=== PATIENT | female | born 1985 | race Caucasian/White ===

== ENCOUNTER 2018-08-19 17:41 | Observation (INO) | payer OTHER ==
[~2018-08-19] VITALS: Ht 165.1 cm; Wt 74.4 kg
[2018-08-19] MEDS ORDERED: RINGERS SOLUTION,LACTATED 1,000 ML IV ONE (18:08)
[2018-08-19] MEDS ORDERED: CefTRIAXone 1 GM/DEXTROSE 50 ML IV ONE (18:15)
[2018-08-19] MEDS ORDERED: NIFEdipine 10 MG CAPSULE PO ONE ×2 (18:15→22:15)
[2018-08-19] MEDS: RINGERS SOLUTION,LACTATED 1,000 ML IV SCH ×2 (18:45→21:43)
[2018-08-19] MEDS: BETAMETHASONE SOLUSPAN 6 MG/ML 5 ML VIAL IM SCH (23:04)
[2018-08-20] MEDS: RINGERS SOLUTION,LACTATED 1,000 ML IV SCH (05:25)
[2018-08-20] MEDS ORDERED: NIFEdipine 10 MG CAPSULE PO ONE (11:30)
[2018-08-20] MEDS: BETAMETHASONE SOLUSPAN 6 MG/ML 5 ML VIAL IM SCH (11:34)
[2018-08-20] MEDS ORDERED: CefTRIAXone 1 GM/DEXTROSE 50 ML IV ONE (11:45)
== END 2018-08-20 12:40 | disposition home or self-care (01) ==
LOC: 4S 17:41
PROVIDERS: ADMIT Obstetrics & Gynecology; ATTEND Obstetrics & Gynecology
DX: O23.43 Unspecified infection of urinary tract in pregnancy, third trimester (principal); O62.9 Abnormality of forces of labor, unspecified; Z3A.34 34 weeks gestation of pregnancy
CPT/HCPCS: 96365; 96366; 96372 ×2; G0378 ×2; J0696 ×2; J0702 ×2; J7120 ×2

== ENCOUNTER 2018-09-19 14:10 | Inpatient (IN) | payer OTHER ==
[~2018-09-19] VITALS: Ht 165.1 cm; Wt 76.2 kg
[2018-09-19] MEDS ORDERED: OXYTOCIN 30 UNITS/LACT RINGERS 500 ML IV ONE ×2 (14:36→14:41)
[2018-09-19] MEDS ORDERED: RINGERS SOLUTION,LACTATED 1,000 ML IV PRN (14:36)
[2018-09-19] MEDS ORDERED: RINGERS SOLUTION,LACTATED 1,000 ML IV SCH (14:36)
[2018-09-19 14:39] VITALS: BP 133/82
[2018-09-19] MEDS ORDERED: FentaNYL CITRATE-PF 100 MCG/2 ML VIAL ONE (14:41)
[2018-09-19] MEDS ORDERED: METOCLOPRAMIDE HCL 5 MG/ML 2 ML VIAL IVP PRN (14:45)
[2018-09-19] MEDS ORDERED: CITRIC ACID/SODIUM CITRATE 30 ML SOLUTION UDCUP PO PRN (14:45)
[2018-09-19] MEDS ORDERED: LIDOCAINE/PF 1% 30 ML VIAL INJ PRN (14:45)
[2018-09-19 15:04] LABS: BASOPHILS % (AUTO) 0.4 % (0.0-2.0); EOSINOPHILS % (AUTO) 0.2 % (1.0-6.0); HEMATOCRIT 47.1 % (36-46); HEMOGLOBIN 16.1 g/dL (12.0-16.0); LYMPHOCYTES # (AUTO) 2.2 K/uL (1.0-4.8); LYMPHOCYTES % (AUTO) 29.5 % (22.0-44.0); MEAN CORPUSCULAR HEMOGLOBIN 33.1 pg (26.0-34.0); MEAN CORPUSCULAR HGB CONC 34.2 G/dL (31.0-37.0); MEAN CORPUSCULAR VOLUME 97 fL (80-100); MONOCYTES # (AUTO) 0.5 K/uL (0.1-1.0); MONOCYTES % (AUTO) 7.2 % (2.0-9.0); NEUTROPHILS # (AUTO) 4.6 K/uL (1.8-7.7); NEUTROPHILS % (AUTO) 62.7 % (40.0-70.0); PLATELET COUNT (AUTO)-OB 155 K/uL (150-450); RED BLOOD CELL COUNT(AUTO) 4.87 MIL/uL (4.00-5.20); RED CELL DISTRIBUTION WIDTH 14.8 % (11.5-14.5)
[2018-09-19] MEDS ORDERED: CeFAZolin 2 GM/DEXTROSE 50 ML IV ONE ×2 (15:18→15:45)
[2018-09-19] MEDS: FentaNYL CITRATE-PF 100 MCG/2 ML VIAL IVP PRN ×2 (15:31→17:31)
[2018-09-19] MEDS ORDERED: GLYCERIN/WITCH HAZEL LEAF 40 PADS JAR TP PRN (15:45)
[2018-09-19] MEDS ORDERED: LANOLIN 7 GM OINTMENT TP PRN (15:45)
[2018-09-19] MEDS ORDERED: BENZOCAINE 20%/MENTHOL 56 GM SPRAY CANISTER TP PRN (15:45)
[2018-09-19] MEDS ORDERED: ACETAMINOPHEN/CODEINE 300-30 MG TABLET PO PRN ×2 (15:45)
[2018-09-19] MEDS: IBUPROFEN 800 MG TABLET PO SCH (17:15)
[2018-09-19 17:34] LABS: PLATELET MORPHOLOGY COMMENT GIANT PLTS PRESENT
[2018-09-19] MEDS ORDERED: PREN1TAB80 PO (18:13)
[2018-09-19] MEDS ORDERED: OXYGEN THERAPY IH SCH (20:00)
[2018-09-19] MEDS: MAGNESIUM HYDROXIDE SUSPENSION 30 ML UDCUP PO SCH (21:30)
[2018-09-20] MEDS: IBUPROFEN 800 MG TABLET PO SCH ×3 (00:23→12:58)
[2018-09-20] MEDS: MAGNESIUM HYDROXIDE SUSPENSION 30 ML UDCUP PO SCH (08:43)
[2018-09-20] MEDS ORDERED: IBUP-2354 PO (15:46)
[2018-09-20] MEDS ORDERED: DSS100 PO (15:47)
== END 2018-09-20 17:20 | disposition home or self-care (01) | DRG 807 ==
LOC: OBSVTOIN 14:10 → 4S 14:10
PROVIDERS: ADMIT Obstetrics & Gynecology; ATTEND Obstetrics & Gynecology
PROC: 10E0XZZ Delivery of Products of Conception, External Approach (ICD-10-PCS; principal; 2018-09-19)
PROC: 0KQM0ZZ Repair Perineum Muscle, Open Approach (ICD-10-PCS; 2018-09-19)
DX: O77.0 Labor and delivery complicated by meconium in amniotic fluid (principal); Z37.0 Single live birth; O70.1 Second degree perineal laceration during delivery; Z3A.39 39 weeks gestation of pregnancy
CPT/HCPCS: 86850; 86900; 86901; J0690; J2590; J3010; J3490; J7120